=== PATIENT | female | born 2005 | race African-American/Black ===

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

== ENCOUNTER 2023-05-18 13:23 | Emergency (ER) | payer OTHER ==
[2023-05-18] MEDS ORDERED: Acetaminophen 500 MG TAB ONE (14:11)
[2023-05-18] MEDS ORDERED: Ondansetron PF 4 MG/2 ML Vial ONE (14:16)
[2023-05-18 14:27] LABS: Bilirubin Neg (Negative); Blood, Urine Negative (Negative); Clarity Clear (Clear); Glucose, Urine (Dipstick) Normal (Negative); Ketone, Urine Negative (Negative); Leukocyte Negative (Negative); Nitrite Negative (Negative); Protein, Urine (Dipstick) Negative (Neg-Trace); Specific Gravity, Urine 1.015 (1.005-1.030); Urobilinogen Normal mg/dL (Less than 2)
[2023-05-18 14:28] LABS: Pregnancy Test - Urine (BHCG) Negative (Negative)
[2023-05-18 14:29] LABS: Pregu Control Background? CLEAR/WHITE (CLR/WHITE); Pregu Control Bar Appear? YES (CONTROL BAR); Specific Gravity 1.015 (1.002-1.036)
[2023-05-18] MEDS ORDERED: Ondansetron ODT 4 MG TAB ONE (14:33)
[2023-05-18 15:06] LABS: Bacteria/HPF 2+ HPF (None Seen); CAUTI Indications for Culture Pelvic or flank pain; RBC/HPF None Seen HPF (0-3); WBC/HPF 0-3 HPF (0-3)
[2023-05-18 15:07] LABS: Urine Culture Reflex No No
== END 2023-05-18 15:00 | disposition home or self-care (01) ==
LOC: CSHERS 13:23
DX: R11.0 Nausea (principal)
CPT/HCPCS: 36416; 81001; 81025; 99283; J2405; Q0162

== ENCOUNTER 2023-10-22 19:11 | Emergency (ER) | payer SELFPAY ==
[2023-10-22] MEDS ORDERED: cefTRIAXone (ROCEPHIN) 500 MG VIAL ONE (19:58)
[2023-10-22] MEDS ORDERED: Azithromycin 250 MG TAB ONE (19:58)
[2023-10-22] MEDS ORDERED: Sterile Water 10 ML ONE (19:59)
[2023-10-22 21:07] LABS: Bilirubin Neg (Negative); Blood, Urine Negative (Negative); Glucose, Urine (Dipstick) Normal (Negative); Ketone, Urine Negative (Negative); Leukocyte Negative (Negative); Nitrite Negative (Negative); Protein, Urine (Dipstick) Negative (Neg-Trace); Specific Gravity, Urine 1.015 (1.005-1.030); Urobilinogen Normal mg/dL (Less than 2)
[2023-10-22 21:10] LABS: Clarity Clear (Clear); Pregnancy Test - Urine (BHCG) Negative (Negative); Pregu Control Background? CLEAR/WHITE (CLR/WHITE); Pregu Control Bar Appear? YES (CONTROL BAR); Specific Gravity 1.015 (1.002-1.036)
[2023-10-22 21:15] LABS: RBC/HPF None Seen HPF (0-3)
[2023-10-22 21:16] LABS: Bacteria/HPF Rare-Few HPF (None Seen); CAUTI Indications for Culture Pelvic or flank pain; Squamous Epithelial 0-3 HPF (0-3); Urine Culture Reflex No No; WBC/HPF None Seen HPF (0-3)
[2023-10-22 23:08] LABS: HIV (1/2) Antibody/Antigen Non-Reactive (NonReactive); HIV 1/2 INDEX 0.13 S/CO (<1.00)
[2023-10-24 22:27] LABS: Chlamydia by PCR, Vaginal Swab *Indeterminate (NotDetected); GC by PCR, Vaginal Swab *Indeterminate (NotDetected)
== END 2023-10-22 22:40 | disposition home or self-care (01) ==
LOC: CSHERS 19:11
DX: N76.0 Acute vaginitis (principal); F17.290 Nicotine dependence, other tobacco product, uncomplicated
CPT/HCPCS: 36415; 81001; 81025; 87389; 87480; 87491; 87510; 87591; 87660; 99284; J0696